=== PATIENT | male | born 1995 | race Caucasian/White ===

== ENCOUNTER 2021-03-27 12:42 | Emergency (ER) | payer BC ==
[~2021-03-27] VITALS: Ht 175.3 cm; Wt 90.7 kg
[~2021-03-27 12:42] MED LIST: ACETAMINOPHEN-1 EAC1 PO; BACTRIM DS TAB1 EACH PO; FLAGYL500 MG PO; IBUPROFEN 800800 M1 PO; NOHOMEMEDICATIONS; NORCO 5-325 TA1 EACH PO; TRAMADOL 50 MG50 MG PO
[2021-03-27 13:09] LABS: ABSOLUTE BASOPHILS 0.1 thou/uL (0.0-0.2); ABSOLUTE EOSINOPHILS 0.3 thou/uL (0.0-0.7); ABSOLUTE MONOCYTES 0.4 thou/uL (0.0-1.2); ABSOLUTE NEUTROPHILS 4.8 thou/uL (1.6-8.1); BASOPHILS 0.7 %; EOSINOPHILS 3.4 %; HEMATOCRIT 47.9 % (42.0-52.0); HEMOGLOBIN 16.8 gm/dL (14.0-18.0); LYMPHOCYTES 41.6 %; MCH 30.8 pg (26.0-34.0); MCHC 35.1 g/dL (28.0-37.0); MCV 87.8 fL (80.0-100.0); MPV 7.8 fl. (7.2-11.1); NUCLEATED RBCS 0 /100WBC; PLATELET COUNT* 291 thou/uL (150-400); POLYS 50.3 %; RBC 5.46 mil/uL (4.50-6.00); RDW-CV 13.1 % (10.5-14.5); WBC 9.6 thou/uL (4.0-11.0)
[2021-03-27 13:17] LABS: CREATININE 0.9 mg/dL (0.6-1.3); POTASSIUM 4.2 mmol/L (3.5-5.1)
[2021-03-27 13:22] LABS: ALBUMIN 4.2 g/dL (3.4-5.0); MAGNESIUM 2.1 mg/dL (1.8-2.4); TOTAL BILIRUBIN 0.1 mg/dL (<0.1-1.0)
--- NOTE | 2021-03-27 14:18 | EKG ---
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[id number] Requested By: Janee Rubio Order Number: [id number] MD: Gaurav Torres Measurements Intervals [place] Rate: 57 P: 8 GA: 172 QRS: 86 QRSD: 103 T: 37 QT: 403 QTc: 393 Interpretive Statements Sinus arrhythmia ST elev, probable normal early repol pattern Compared to ECG 09/26/2008 15:33:34 ST (T wave) deviation now present Sinus rhythm no longer present Electronically Signed On 03-27-2021 14:18:49 CDT by Gaurav Torres [email or web address] <ELECTRONICALLY SIGNED> By: Gaurav Torres MD, [facility] 03/27/21 1418 1315 1315 Gaurav Torres MD, [facility] /EPI
[2021-03-27 15:35] VITALS: BP 125/70
== END 2021-03-27 15:37 | disposition left against medical advice (07) ==
LOC: M.ERS 12:42
PROVIDERS: Physician Assistant
DX: S09.8XXA Other specified injuries of head, initial encounter (principal); G40.909 Epilepsy, unspecified, not intractable, without status epilepticus; Z90.89 Acquired absence of other organs; W22.8XXA Striking against or struck by other objects, initial encounter; Y93.89 Activity, other specified; Y92.89 Other specified places as the place of occurrence of the external cause; Y99.8 Other external cause status